=== PATIENT | male | born 1995 | race African-American/Black ===

== ENCOUNTER 2017-07-03 21:11 | Emergency (ER) | payer SELFPAY ==
[~2017-07-03] VITALS: Ht 175.3 cm; Wt 75.0 kg
[2017-07-03 21:16] VITALS: BP 136/72; PULSE 114; RESP 22; TEMP 97.8; O2SAT 100
--- NOTE | 2017-07-03 21:29 | PD ---
HPI Chief Complaint: Cardiac Complaint Time Seen by Provider: 21:25 Travel History International Travel<30 days: No Contact w/Intl Traveler<30days: No Traveled to known affect area: No History of Present Illness HPI 21-year-old Afro-[place] male from [place] presents the emergency department with palpitations and "shivering". Patient states he chewed some marijuana, about 2 hours ago, which may have been K2. He then developed the symptoms. He denies shortness of breath, nausea, vomiting, headache, or other constitutional symptoms. Denies chest pain. He is allergic to Advil and Tylenol. [facility] Social History Alcohol Use: Yes Tobacco Use: Yes Substance Use: Yes Allergies-Medications (Allergen,Severity, Reaction): Coded Allergies: acetaminophen (Verified Allergy, Unknown, 07/03/17) ibuprofen (Verified Allergy, Unknown, 07/03/17) Reported Meds & Prescriptions Reported Meds & Active Scripts Active No Active Prescriptions or Reported Medications Review of Systems General / Constitutional: Positive: Chills, No: Fever Eyes: No: Visual changes HENT: No: Headaches Cardiovascular: Positive: Palpitations, Tachycardia, No: Chest Pain or Discomfort, Irregular Rhythm, Diaphoresis, Syncope, Dyspnea on exertion, Varicosities, Edema, Cyanosis, Varicosities, Phlebitis, Claudication Respiratory: No: Shortness of Breath Gastrointestinal: No: Abdominal Pain Genitourinary: No: Dysuria Musculoskeletal: No: Pain Skin: No Rash Neurologic: No: Weakness Psychiatric: No: Depression Endocrine: No: Polydipsia Hematologic/Lymphatic: No: Easy Bruising Physical Exam Exam Limitations: Intoxication Narrative GENERAL: Patient appears intoxicated. He is able to answer questions appropriately. SKIN: Warm and dry. Normal color. Normal turgor. HEAD: Atraumatic. Normocephalic. EYES: Pupils equal and round. No scleral icterus. No injection or drainage. ENT: No nasal bleeding or discharge. Mucous membranes pink and moist. Pharynx is clear. Airway is patent. NECK: Trachea midline. Supple and nontender. CARDIOVASCULAR: Tachycardic rate and normal rhythm. RESPIRATORY: No accessory muscle use. Clear to auscultation. Breath sounds equal bilaterally. GASTROINTESTINAL: Abdomen soft, non-tender, nondistended. Hepatic and splenic margins not palpable. MUSCULOSKELETAL: Extremities without clubbing, cyanosis, or edema. No obvious deformities. NEUROLOGICAL: Awake and alert. No obvious cranial nerve deficits. Motor grossly within normal limits. Five out of 5 muscle strength in the arms and legs. Normal speech. PSYCHIATRIC: Appropriate mood and affect; insight and judgment normal. Data Data Last Documented VS Vital Signs Date Time Temp Pulse Resp B/P (MAP) Pulse Ox O2 Delivery O2 Flow Rate FiO2 07/03/17 22:21 86 20 127/70 (89) 100 Room Air 07/03/17 21:16 97.8 Orders Orders Electrocardiogram (07/03/17 21:29) Ckmb (Isoenzyme) Profile (07/03/17 21:29) Complete Blood Count With Diff (07/03/17:29) Comprehensive Metabolic Panel (07/03/17:29) Magnesium (Mg) (07/03/17 21:29) Prothrombin Time / Inr (Pt) (07/03/17 21:29) Act Partial Throm Time (Ptt) (07/03/17 21:29) Troponin I (07/03/17:29) Chest, Single Ap (07/03/17 21:29) Ecg Monitoring (07/03/17 21:29) Bilateral Bp Monitoring (07/03/17 21:29) Iv Access Insert/Monitor (07/03/17:29) Oximetry (07/03/17 21:29) Oxygen Administration (07/03/17 21:29) Sodium Chloride 0.9% Flush (Ns Flush) (07/03/17 21:30) Diltiazem Inj (Cardizem Inj) (07/03/17 21:30) Sodium Chlor 0.9% 1000 Ml Inj (Ns 1000 M (07/03/17 21:30) Drug Screen, Random Urine (07/03/17 21:29) Electrocardiogram (07/03/17 ) Potassium Chloride (Kcl) (07/03/17 22:45) CKMB (07/03/17 21:50) CKMB% (07/03/17 21:50) Labs Laboratory Tests Test 07/03/17 21:50 White Blood Count 6.2 TH/MM3 Red Blood Count 4.94 MIL/MM3 Hemoglobin 13.9 GM/DL Hematocrit 41.9 % Mean Corpuscular Volume 84.8 FL Mean Corpuscular Hemoglobin 28.1 PG Mean Corpuscular Hemoglobin Concent 33.1 % Red Cell Distribution Width 12.9 % Platelet Count 229 TH/MM3 Mean Platelet Volume 9.4 FL Neutrophils (%) (Auto) 64.2 % Lymphocytes (%) (Auto) 26.8 % Monocytes (%) (Auto) 7.7 % Eosinophils (%) (Auto) 0.8 % Basophils (%) (Auto) 0.5 % Neutrophils # (Auto) 4.0 TH/MM3 Lymphocytes # (Auto) 1.7 TH/MM3 Monocytes # (Auto) 0.5 TH/MM3 Eosinophils # (Auto) 0.0 TH/MM3 Basophils # (Auto) 0.0 TH/MM3 CBC Comment DIFF FINAL Differential Comment Prothrombin Time 11.5 SEC Prothromb Time International Ratio 1.0 RATIO Activated Partial Thromboplast Time 26.8 SEC Blood Urea Nitrogen 8 MG/DL Creatinine 0.91 MG/DL Random Glucose 131 MG/DL Total Protein 7.4 GM/DL Albumin 4.0 GM/DL Calcium Level 8.4 MG/DL Magnesium Level 2.0 MG/DL Alkaline Phosphatase 60 U/L Aspartate Amino Transf (AST/SGOT) 14 U/L Alanine Aminotransferase (ALT/SGPT) 26 U/L Total Bilirubin 0.2 MG/DL Sodium Level 138 MEQ/L Potassium Level 3.4 MEQ/L Chloride Level 103 MEQ/L Carbon Dioxide Level 26.4 MEQ/L Anion Gap 9 MEQ/L Estimat Glomerular Filtration Rate 126 ML/MIN Total Creatine Kinase 174 U/L Troponin I LESS THAN 0.02 NG/ML MDM Medical Decision Making Medical Screen Exam Complete: Yes Emergency Medical Condition: Yes Differential Diagnosis Illicit drug use. Tachycardia. Possible stimulant ingestion. Narrative Course Patient is stable at time of exam. EKG shows sinus tachycardia with a rate of 115 bpm. Labs ordered including CBC, CMP, cardiac panel, urine drug screen. Chest x-ray is ordered. IV access is obtained patient is given 10 mg Cardizem IV, as well as thousand mL normal saline bolus. 2144, the patient's heart rate is noted to be 90 bpm. Cardizem was canceled. CBC is unremarkable. Chest x-ray is unremarkable for acute process. Coagulation studies are normal. CMP shows sodium 138, potassium 3.4, chloride 103, random glucose 131, calcium is 8.4 Repeat EKG at 2244 shows sinus rhythm at [address] elevation consistent with injury suggestive of pericarditis or early repolarization. This is reviewed with Dr. Montero. First troponin is less than 0.02 Patient's labs are reviewed with Dr. Montero. Patient is reassessed and found to feel improved. Urine tox screen is canceled. Patient is felt stable for discharge at this time. Patient should avoid further illicit drug use. Patient should rest and follow up as needed. Diagnosis Primary Impression: Illicit drug use Additional Impression: Tachycardia, unspecified Referrals: [facility] (Out patient) [facility] Patient Instructions: Atrial Tachycardia (ED), General Instructions Additional Instructions: Patient is felt stable for discharge at this time. Patient should avoid further illicit drug use. Patient should rest and follow up as needed. Med/Other Pt SpecificInfo: Prescription(s) given Scripts No Active Prescriptions or Reported Meds Disposition: 01 DISCHARGE HOME Condition: Stable Roberth Puentes Jul 03, 2017 21:29
[2017-07-03] MEDS ORDERED: DILTIAZEM HCL 25 MG/5 ML VIAL IV ONE (21:30)
[2017-07-03] MEDS ORDERED: SODIUM CHLORIDE 0.9% FLUSH 10 ML FLUSH IVF PRN (21:30)
[2017-07-03] MEDS ORDERED: SODIUM CHLOR 0.9% 1000 ML INJ 1,000 ML IV ONE (21:30)
[2017-07-03 21:50] VITALS: BP 144/70; PULSE 98; RESP 18; O2SAT 100
[2017-07-03 22:07] LABS: BASOPHIL % 0.5 % (0.0-2.0); EOSINOPHIL % 0.8 % (0.0-4.0); HEMATOCRIT 41.9 % (39.0-51.0); HEMO FLAGS DIFF FINAL; LYMPH % 26.8 % (9.0-44.0); LYMPHOCYTE # 1.7 TH/MM3 (1.0-4.8); MEAN CELL VOLUME 84.8 FL (80.0-100.0); MEAN CORPUSCULAR HEMOGLOBIN 28.1 PG (27.0-34.0); MEAN CORPUSCULAR HGB CONC 33.1 % (32.0-36.0); MONO % 7.7 % (0.0-8.0); NEUT % 64.2 % (16.0-70.0); PLATELET COUNT 229 TH/MM3 (150-450); RED BLOOD COUNT 4.94 MIL/MM3 (4.50-5.90); RED CELL DISTRIBUTION WIDTH 12.9 % (11.6-17.2); WHITE BLOOD COUNT 6.2 TH/MM3 (4.0-11.0)
[2017-07-03 22:21] VITALS: BP 127/70; PULSE 86; RESP 20; O2SAT 100
[2017-07-03 22:31] LABS: APTT (PATIENT) 26.8 SEC (24.3-30.1); PROTHROMBIN TIME - PATIENT 11.5 SEC (9.8-11.6)
[2017-07-03 22:37] LABS: ALT (GPT) 26 U/L (12-78); ANION GAP 9 MEQ/L (5-15); AST (GOT) 14 U/L (15-37); BICARBONATE 26.4 MEQ/L (21.0-32.0); BLOOD UREA NITROGEN 8 MG/DL (7-18); CHLORIDE 103 MEQ/L (98-107); GLOMERULAR FILTRATION RATE 126 ML/MIN (>89); POTASSIUM 3.4 MEQ/L (3.5-5.1); SODIUM (NA) 138 MEQ/L (136-145)
[2017-07-03 22:40] LABS: ALKALINE PHOSPHATASE 60 U/L (45-117); CREATINE KINASE 174 U/L (39-308); TOTAL BILIRUBIN ADULT 0.2 MG/DL (0.2-1.0)
--- NOTE | 2017-07-03 22:41 | RADRPT ---
EXAM DATE/TIME: 07/03/2017 21:54 [facility] COMPARISON: No previous studies available for comparison. INDICATIONS : Tachycardia. MEDICAL HISTORY : None. SURGICAL HISTORY : None. ENCOUNTER: Initial ACUITY: 1 day PAIN SCORE: 0/10 LOCATION: Bilateral chest FINDINGS: A single view of the chest demonstrates the lungs to be symmetrically aerated without evidence of mas s, infiltrate or effusion. The cardiomediastinal contours are unremarkable. Osseous structures are intact. CONCLUSION: No acute disease. Dev Cramer MD on July 03, 2017 at 22:38 Board Certified Radiologist. This report was verified electronically.
[2017-07-03] MEDS ORDERED: POTASSIUM CHLORIDE 20 MEQ CONTROLLED RELEASE TAB PO ONE (22:45)
[2017-07-03 22:58] LABS: CKMB 0.8 NG/ML (0.5-3.6)
[2017-07-03 23:40] VITALS: BP 109/65
--- NOTE | 2017-07-04 07:02 | EKG ---
Date Performed: 07/03/2017 Time Performed: 21:18:48 PTAGE: 21 years EKG: SINUS TACHYCARDIA POSSIBLE RIGHT ATRIAL ENLARGEMENT BORDERLINE RIGHT AXIS DEVIATION ABNORMA L RHYTHM ECG NO PREVIOUS TRACING DOCTOR: Dl Wolf Interpretating Date/Time 07/04/2017 07:01:09
--- NOTE | 2017-07-04 08:31 | EKG ---
Date Performed: 07/03/2017 Time Performed: 22:38:37 PTAGE: 21 years EKG: Sinus rhythm MINIMAL ST ELEVATION, CONSIDER ACUTE INJURY, PERICARDITIS, OR EARLY REPOLARIZATION ABNORMAL ECG PREVIOUS TRACING : 07/03/2017 21.18 No significant change from previous tracing noted. DOCTOR: Dl Wolf Interpretating Date/Time 07/04/2017 08:30:53
== END 2017-07-03 23:43 | disposition home or self-care (01) ==
LOC: NEPC 21:11
DX: F19.10 Other psychoactive substance abuse, uncomplicated (principal); R00.0 Tachycardia, unspecified; Z72.0 Tobacco use
CPT/HCPCS: 71010; 80053; 82550; 82552; 83735; 84484; 85025; 85610; 85730; 93005; 96360; 99285; J7030; 96361; 96374

== ENCOUNTER 2017-11-10 11:57 | Emergency (ER) | payer SELFPAY ==
[2017-11-10 12:13] VITALS: BP 120/71; PULSE 78; RESP 16; TEMP 97.5; O2SAT 100
--- NOTE | 2017-11-10 13:53 | RADRPT ---
EXAM DATE/TIME: 11/10/2017 12:57 [facility] COMPARISON: CHEST SINGLE AP, July 03, 2017, 21:54. INDICATIONS : Left-center chest pain. Headaches. MEDICAL HISTORY : None. SURGICAL HISTORY : None. ENCOUNTER: Initial ACUITY: 4 - 6 days PAIN SCORE: 4/10 LOCATION: Left middle chest FINDINGS: PA and lateral views of the chest demonstrate the lungs to be symmetrically aerated without evidence of mass, infiltrate or effusion. The cardiomediastinal contours are unremarkable. Osseous structure s are intact. CONCLUSION: 1. No acute cardiopulmonary findings. Bacilio Smalls MD on November 10, 2017 at 13:42 Board Certified Radiologist. This report was verified electronically.
[2017-11-10] MEDS ORDERED: traMADol HCL 50 MG TAB PO ONE (16:30)
--- NOTE | 2017-11-10 16:32 | PD ---
HPI Chief Complaint: Chest Pain Time Seen by Provider: 16:14 Travel History International Travel<30 days: No Contact w/Intl Traveler<30days: No Traveled to known affect area: No History of Present Illness HPI This is a 22-year-old male who presents for evaluation of a headache. Symptoms started 3 days ago. He describes it as a mild bitemporal aching headache with no aggravating or relieving factors. He reports that he has been having left otic pain as well. He also reports during review of systems that he has had left lower chest pain for 3 years which is constant. This has no aggravating or relieving factors. He denies cough, congestion, sore throat, fevers, chills , abdominal pain, flank pain, leg swelling. He has no significant past medical history. He denies any illicit drug use. When asked why he came in today, he says that it is because of a headache and not because of his chronic chest pain. He has no other complaints at this time. [facility] Past Medical History Diminished Hearing: No Social History Alcohol Use: Yes Tobacco Use: Yes Substance Use: Yes Allergies-Medications (Allergen,Severity, Reaction): Coded Allergies: acetaminophen (Verified Allergy, Unknown, 07/03/17) ibuprofen (Verified Allergy, Unknown, 07/03/17) Reported Meds & Prescriptions Reported Meds & Active Scripts Active No Active Prescriptions or Reported Medications Review of Systems Except as stated in HPI: all other systems reviewed are Neg Physical Exam Narrative GENERAL: Well-developed well-nourished male in no acute distress SKIN: Warm and dry. HEAD: Atraumatic. Normocephalic. EYES: Pupils equal and round. No scleral icterus. No injection or drainage. ENT: No nasal bleeding or discharge. Mucous membranes pink and moist. Tympanic membrane's appear normal without erythema or fluid level NECK: Trachea midline. No JVD. CARDIOVASCULAR: Regular rate and rhythm. No murmur appreciated. RESPIRATORY: No accessory muscle use. Clear to auscultation. Breath sounds equal bilaterally. GASTROINTESTINAL: Abdomen soft, non-tender, nondistended. Hepatic and splenic margins not palpable. MUSCULOSKELETAL: No obvious deformities. No clubbing. No cyanosis. No edema. NEUROLOGICAL: Awake and alert. No obvious cranial nerve deficits. Motor grossly within normal limits. Normal speech. PSYCHIATRIC: Appropriate mood and affect; insight and judgment normal. Data Data Last Documented VS Vital Signs Date Time Temp Pulse Resp B/P (MAP) Pulse Ox O2 Delivery O2 Flow Rate FiO2 11/10/17 16:24 Room Air 11/10/17 12:13 97.5 78 16 120/71 (87) 100 Orders Orders Chest, Pa & Lat (11/10/17 ) Electrocardiogram (11/10/17 ) Complete Blood Count With Diff (11/10/17 16:21) Basic Metabolic Panel (Bmp) (11/10/17 16:21) Ct Brain W/O Iv Contrast(Rout) (11/10/17 16:21) Iv Access Insert/Monitor (11/10/17 16:21) Drug Screen, Random Urine (11/10/17 16:21) Tramadol (Ultram) (11/10/17 16:30) Ketorolac Inj (Toradol Inj) (11/10/17 19:00) Ed Discharge Order (11/10/17 18:48) Labs Laboratory Tests Test 11/10/17 16:45 11/10/17 17:00 White Blood Count 6.1 TH/MM3 Red Blood Count 5.45 MIL/MM3 Hemoglobin 15.4 GM/DL Hematocrit 46.0 % Mean Corpuscular Volume 84.5 FL Mean Corpuscular Hemoglobin 28.2 PG Mean Corpuscular Hemoglobin Concent 33.4 % Red Cell Distribution Width 13.4 % Platelet Count 256 TH/MM3 Mean Platelet Volume 9.9 FL Neutrophils (%) (Auto) 47.0 % Lymphocytes (%) (Auto) 42.9 % Monocytes (%) (Auto) 7.9 % Eosinophils (%) (Auto) 1.7 % Basophils (%) (Auto) 0.5 % Neutrophils # (Auto) 2.9 TH/MM3 Lymphocytes # (Auto) 2.6 TH/MM3 Monocytes # (Auto) 0.5 TH/MM3 Eosinophils # (Auto) 0.1 TH/MM3 Basophils # (Auto) 0.0 TH/MM3 CBC Comment DIFF FINAL Differential Comment Blood Urea Nitrogen 12 MG/DL Creatinine 0.90 MG/DL Random Glucose 76 MG/DL Calcium Level 9.5 MG/DL Sodium Level 138 MEQ/L Potassium Level 3.9 MEQ/L Chloride Level 103 MEQ/L Carbon Dioxide Level 28.1 MEQ/L Anion Gap 7 MEQ/L Estimat Glomerular Filtration Rate 127 ML/MIN Urine Opiates Screen NEG Urine Barbiturates Screen NEG Urine Amphetamines Screen NEG Urine Benzodiazepines Screen NEG Urine Cocaine Screen NEG Urine Cannabinoids Screen NEG MDM Medical Decision Making Medical Screen Exam Complete: Yes Emergency Medical Condition: Yes Medical Record Reviewed: Yes Differential Diagnosis Tension headache, cluster headache, migraine, otitis media, sinusitis Narrative Course Physical examination is benign. A chest x-ray was obtained revealing no acute abnormalities. EKG was obtained revealing normal sinus rhythm with no ischemic changes. He has no neurologic deficits on examination. He has no evidence of otitis media. The brain was obtained revealing no acute normalities. He was given a dose of tramadol with some improvement in his headache but still mild residual pain. He has allergies to ibuprofen and Tylenol listed however he denies any allergies to ibuprofen or Tylenol. Therefore dose of Toradol has been ordered. CBC, BMP unremarkable. Drug screen negative. Patient will be discharged. Diagnosis Primary Impression: Cephalgia Additional Impression: Chronic chest pain Additional Instructions: Follow-up with primary care physician. Return for any emergent medical conditions. Med/Other Pt SpecificInfo: No Change to Meds Scripts No Active Prescriptions or Reported Meds Disposition: 01 DISCHARGE HOME Condition: Stable Spencer Solorio Nov 10, 2017 16:32
--- NOTE | 2017-11-10 17:34 | RADRPT ---
EXAM DATE/TIME: 11/10/2017 17:15 [facility] COMPARISON: No previous studies available for comparison. INDICATIONS : Headache since tuesday RADIATION DOSE: 38.15 CTDIvol (mGy) MEDICAL HISTORY : None SURGICAL HISTORY : None. ENCOUNTER: Initial ACUITY: 4 - 6 days PAIN SCALE: 7/10 LOCATION: cranial TECHNIQUE: Multiple contiguous axial images were obtained of the head. Using automated exposure control and adj ustment of the mA and/or kV according to patient size, radiation dose was kept as low as reasonably a chievable to obtain optimal diagnostic quality images. DICOM format image data is available electro nically for review and comparison. FINDINGS: CEREBRUM: The ventricles are normal for age. No evidence of midline shift, mass lesion, hemorrhage or acute in farction. No extra-axial fluid collections are seen. POSTERIOR FOSSA: The cerebellum and brainstem are intact. The 4th ventricle is midline. The cerebellopontine angle i s unremarkable. EXTRACRANIAL: The visualized portion of the orbits is intact. SKULL: The calvaria is intact. No evidence of skull fracture. CONCLUSION: 1. No acute intracranial abnormality. Bacilio Smalls MD on November 10, 2017 at 17:30 Board Certified Radiologist. This report was verified electronically.
[2017-11-10 18:05] LABS: AUTOMATED NEUTROPHIL # 2.9 TH/MM3 (1.8-7.7); BASOPHIL % 0.5 % (0.0-2.0); EOSINOPHIL # 0.1 TH/MM3 (0-0.4); EOSINOPHIL % 1.7 % (0.0-4.0); HEMOGLOBIN 15.4 GM/DL (13.0-17.0); LYMPH % 42.9 % (9.0-44.0); LYMPHOCYTE # 2.6 TH/MM3 (1.0-4.8); MEAN CELL VOLUME 84.5 FL (80.0-100.0); MEAN CORPUSCULAR HEMOGLOBIN 28.2 PG (27.0-34.0); MEAN CORPUSCULAR HGB CONC 33.4 % (32.0-36.0); MEAN PLATELET VOLUME 9.9 FL (7.0-11.0); MONO % 7.9 % (0.0-8.0); MONOCYTE # 0.5 TH/MM3 (0-0.9); PLATELET COUNT 256 TH/MM3 (150-450); RED BLOOD COUNT 5.45 MIL/MM3 (4.50-5.90); RED CELL DISTRIBUTION WIDTH 13.4 % (11.6-17.2); WHITE BLOOD COUNT 6.1 TH/MM3 (4.0-11.0)
[2017-11-10 18:24] LABS: BICARBONATE 28.1 MEQ/L (21.0-32.0); CALCIUM 9.5 MG/DL (8.5-10.1); CREATININE 0.9 MG/DL (0.60-1.30)
[2017-11-10] MEDS ORDERED: KETOROLAC TROMETHAMINE 30 MG/ML (IVP) VIAL IV PUSH ONE (19:00)
--- NOTE | 2017-11-10 20:22 | EKG ---
Date Performed: 11/10/2017 Time Performed: 13:10:16 PTAGE: 22 years EKG: Sinus rhythm POSSIBLE RIGHT ATRIAL ENLARGEMENT BORDERLINE ECG PREVIOUS TRACING : 07/03/2017 22.38 No significant change from previous tracing noted. DOCTOR: Dl Wolf Interpretating Date/Time 11/10/2017 20:22:03
== END 2017-11-10 19:32 | disposition home or self-care (01) ==
LOC: NEPD 11:57
DX: R51 Headache (principal); R07.9 Chest pain, unspecified; G89.29 Other chronic pain; Z72.0 Tobacco use
CPT/HCPCS: 70450; 71046; 80048; 80307; 85025; 93005; 96374; 99285; J1885